=== PATIENT | female | born 1990 | race Caucasian/White ===

== ENCOUNTER → 2022-12-04 | Outpatient (CLI) | payer BC ==
[~2022-12-04] MED LIST: IBU800 M1 PO; LEXAPRO20 MG PO; PRENATAL TABLET PO; ROXICODONE 55 MG/TAB PO
--- NOTE | 2022-12-04 14:23 | NUR ---
Pt, Izabella Perry, presents for outpatient feeding consultation with 6 day old twins, Marii (baby A) and Danika (baby B). She is accompanied by her spouse, Sctot. The twins were born on [birth year] by c/section at about 38 weeks gestation. Marii's physical exam equaled 38 weeks gestation, she weighed 6# 11.6oz (3050 gms). Discharge weight was 6# 5oz (2875 gms). Today Marii weighs 6# 5.5oz (2878 gms). Danika's physical exam equaled 36 weeks gestation, she weighed 5# 13.5oz (2650 gms). Discharge weight was 5# 11oz (2570 gms). Today Danika weighs 5# 7.9oz (2492 gms). The babies are essentially being formula fed by bottle as pt has not developed a milk supply yet, she states she pumped 30ml x1 this morning. She is pumping 4-5 times per day. The babies are being offered 2oz per feeding, and at this point pt states they are probably getting 6-7 meals per 24 hours. Concerns the family have identified include low milk supply. Discussion about importance of 8+ pumpings per 24 hours, fluids and nutrition. Pt has some physical characteristics of PCOS, including hirsutism, wide spaced and conical shaped breasts. Pt has not been diagnosed with PCOS. Pt had gestational diabetes and a c/section delivery that may have minor effects on milk supply. Herbal supplements that may help with milk supply have also been reviewed. Additional concerns include length of feeding time for them to eat (30 mins) with the bottle. Discussion of bottle and nipple type that may make it easier or more difficult to transfer. Babies were then bottle fed here and RAYSA notes Danika wears out during the feeding. LC holds Danika more upright, provides chin support and vents the bottle frequently and she drinks much more efficiently. Parents observe this feeding method and will work on this for feedings. POC: Continue bottle feeding, 8 times per 24 hours, 2oz or more if tolerated. Continue pumping more frequently as able. F/U: Appt with Dr. Marley on FridayDec 06.
== END ==
LOC: LAC 05:18
DX: Z39.1 Encounter for care and examination of lactating mother (principal); Z71.89 Other specified counseling

== ENCOUNTER → 2022-12-09 | Outpatient (CLI) | payer BC ==
--- NOTE | 2022-12-09 14:55 | NUR ---
Pt, Izabella Perry, presents for weight check for her twin babies, Marii and Danika. She is accompanied by her , Scott. The twins were born on [birth year]. Marii weighed 6# 11.6oz (3050) at . On 12/04/22, at this clinic, she weighed 6 # 5.5oz (2878 gms). Marii was fed ~2.5oz formula prior to being weighed, but today she weighs 6# 15.3oz (3156 gms). Danika weighed 5# 13.5oz (2651 gms) at . On 12/04/22, at this clinic, she weighed 5# 7.9oz (2492 gms). Prior to feeding today she weighed 5# 13oz (2636 gms). These weights seem to be more reassuring compared to weighes [address] Marley's office. Pt states Danika weighed 5.16 pounds at that appt. Danika also continues to struggle with bottle feeding. Over the last 24 hours the family reports she drank 10.5oz and feedings can take 30-90 minutes to eat. provides a bottle and bottle nipple that is used in the hospital. Pt struggles with handling Danika in an upright position and not cuddling her next to her own body which makes Danika warm and snuggly. LC demonstrates how to hold baby away from body giving good neck and shoulder support, placing the nipple deeper into Danika's mouth, and then providing chin support. Danika does well with this and drinks well from the bottle. Pt completes the feeding, needing prompting to give chin support. Total feeding time is about 10 minutes. Scott bottle feeds Marii without difficulty. To compare scales, pt will go to [facility] and have Danika weighed there. POC: contiue bottle feeding with hospital nipple and technique practiced here, with awareness of need for chin support. F/U: Weight check tomorrow. Questions invited and answered.
== END ==
LOC: LAC 13:02
DX: Z39.1 Encounter for care and examination of lactating mother (principal); Z71.89 Other specified counseling

== ENCOUNTER → 2022-12-10 | Outpatient (CLI) | payer BC ==
--- NOTE | 2022-12-10 15:47 | NUR ---
Pt, Izabella Perry, presents to walk-in clinic with 12 day old twins, Marii and Zaida Perry, for weight checks. The twins were born on [birth year]. Marii weighed 6# 11.6oz (3050 gms) at . Yesterday she weighed 6# 15.3oz after being fed ~2.5oz formula. Today she weighes 6# 13.3oz (3098 gms) prior to feeding. She drank about 2.5oz while in clinic. Danika weighed 5# 13.5ox (2651 gms) at . Yesterday she weighed 5# 13oz (2636 gms). Today she weighs 5# 14.7oz (2684 gms). She drinks about 2.5oz while in clinic. Pt does better work with bottle feeding, providing chin support and the feeding is completd in a reasonable time frame. The twins have a home visit from [facility]. Pt will contact this LC re: weights and follow up plan. If weights look WNL, they will likely be weighed at [facility] on Friday. If weights are questionable, they will follow up at clinic. Questions invited and answered.
== END ==
LOC: LAC 12:37
DX: Z39.1 Encounter for care and examination of lactating mother (principal)

== ENCOUNTER → 2023-02-04 | Outpatient (CLI) | payer BC ==
--- NOTE | 2023-02-04 15:24 | NUR ---
PT, Izabella Perry, presents to walk-in clinic with 9 week old baby girl, Danika Perry, for a bottle feedng evaluation. She is accompanied by her spouse. Danika was born on [birth year]. She is currently bottle feeding formula. Pt had Danika evaluated for tongue tie as she has been pretty messy with bottle feeding and makes a lot of extranious noises while bottle feeding and takes an hour to feed. Danika was evaluated and treated for upper lip and sublingual ties yesterday by Dr. Bocanegra at [facility]. Pt states she is doing the oral exercises to keep the release open. Today Danika weighs 9# 2.1oz (4140 gms). FOB begins bottle feeding process, advised to keep Danika a little more upright to help her manage milk flow. Initially Danika does not seem to transfer milk very effectively while FOB feeds her. LC works with bottle feeding and notes Danika has a pretty high palate that is likely making compression of the bottle nipple agains the palate difficult. LC demonstrates placing the bottle nipple against the roof of the mouth vs. laying on the tongue, and then providing support under the tongue in the soft tissues between the jaw bone. Danika seems to tranfer milk a little more effectively and is able to drink 3.3oz per post feed weight in about 30 minutes. Pt and spouse states the leaking was significantly less. POC: Continue to use feeding position, bottle angle and tongue support with feeding Danika as learned at this consult. Continue tongue exercises learned with tie releases. LC also instructs on pacifier "tug-of-war" and teasing her with the bottle nipple to perform tongue extension. F/U: As needed at clinic and with physicians as scheduled. Questions invited and answered.
== END ==
LOC: LAC 13:45
DX: Z39.1 Encounter for care and examination of lactating mother (principal); Z71.89 Other specified counseling